=== PATIENT | female | born 1975 | race Caucasian/White ===

== ENCOUNTER → 2016-10-31 08:13 | Outpatient (CLI) | payer OTHER | END | disposition home or self-care (01) | LOC: D.RAD 08:13 | DX: R12 Heartburn (principal) ==

== ENCOUNTER 2016-12-06 06:56 | Day surgery (SDC) | payer OTHER ==
[2016-12-06] MEDS ORDERED: NEXIUM20 MG PO (07:59)
[2016-12-06] MEDS ORDERED: MULTIPLE VITAMI1 TA1 PO (08:00)
[2016-12-06] MEDS ORDERED: ZANTAC150 MG PO (08:00)
[2016-12-06 08:13] VITALS: BMI 28.2
[2016-12-06 08:19] LABS: HEMATOCRIT 38.1 % (36.0-48.0); HEMOGLOBIN 13.2 g/dL (12-16); MCH 30.8 pg (26.0-34.0); MCHC 34.6 g/dL (31.0-37.0); MEAN PLATELET VOLUME 11.9 fL (7.4-10.4); RBC 4.28 10x6/uL (4.00-5.40); RDW 12.3 % (11.5-14.5); WBC 5.3 10x3/uL (4.8-10.8)
[2016-12-06 08:41] LABS: HCG URINE NEGATIVE (NEGATIVE)
--- NOTE | 2016-12-06 09:39 | NUR ---
DILATED EOPHAGUS TO 60.
--- NOTE | 2016-12-06 10:07 | NUR ---
1000- PT BACK TO ROOM LL POSITION. OPENS EYES TO VERBAL STIMULATION AND ANSWERS QUESTIONS APPROPRIATELY. FULL LIQUIDS OFFERED. 1005- REPOSITIONED FOR COMFORT. VSS. WILL MONITOR.
--- NOTE | 2016-12-06 10:24 | NUR ---
PT TOLERATED FULL LIQUIDS. VSS. PT TO READY FOR HOME SHORTLY, CALLING FOR RIDE. WILL CONTINUE TO MONITOR.
--- NOTE | 2016-12-06 10:38 | NUR ---
1 MONTH FOLLOW UP APPT TO BE SCHEDULED BY OFFICE. ORDER FAXED, CONFIRMATION SHEET WITH ORDER.
--- NOTE | 2016-12-06 11:00 | NUR ---
1050- DR. SPANN AT BEDSIDE FOR PROCEDURAL FINDINGS. 1100- DISCHARGE INSTRUCTIONS COMPLETED. PAPERWORK SIGNED. PT VERBALIZED UNDERSTANDING.
--- NOTE | 2016-12-06 11:20 | NUR ---
PT DISCHARGED VIA WHEELCHAIR WITH FATHER.
--- NOTE | 2016-12-08 10:45 | OP ---
PATIENT NAME: YULIYA BOOTH MEDICAL RECORD: [id number] :79 LOCATION:[facility] ADMISSION DATE: SURGEON: ERIK SPANN MD DATE OF OPERATION: 12/06/2016 PROCEDURE: EGD with biopsy and esophageal balloon dilatation. REFERRING PHYSICIAN: Dr. Elvia Bernal [place], [place]. INDICATIONS: Ms. Booth is a delightful 41-year-old woman with a history of achalasia and GE reflux disease. She had a laparoscopic Coy fundoplication, Heller myotomy with Dr. Ma in 2007. She has had recurrent heartburn for several years, has been taking ranitidine 150 mg twice a day and Nexium [id number] twice a day for at least the past 5 years with minimal relief. She had an upper GI series with [facility] 10/31/2016 with finding showing postsurgical changes of the esophagus, trabeculated/reticulated appearance of the distal esophagus at the GE junction, retained contrast material within the esophagus. She presents for outpatient EGD. PREMEDICATIONS: Total IV anesthesia (propofol 300 mg). INSTRUMENT: Olympus video gastroscope and an esophageal balloon dilator 54-60French. PROCEDURE AND FINDINGS: After receiving informed consent, Ms. Booth's posterior pharynx was anesthetized with Cetacaine spray. She was placed in left lateral decubitus position, sedated as per anesthesia. After achieving adequate level of sedation, gastroscope was introduced per orally and advanced to the duodenum without difficulty. The esophagus was somewhat patulous and there was some modest clear fluid in the esophagus. The gastroscope passed easily through the GE junction. There were a few polyps in the fundus of the stomach measuring 0.3 cm in size and were biopsied. There was minimal erythema in the antrum and antral biopsies were obtained to rule out Helicobacter pylori. On retroflexion, no lesions were seen in the cardia. Pylorus was patent and competent. Duodenal mucosa was without erythema or ulcers, appeared normal through the third portion. Biopsies were taken from the second portion of duodenum to rule out celiac disease. The gastroscope was then withdrawn. Then, an esophageal balloon dilator was introduced through the gastroscope and the balloon was positioned midway across the GE junction, insufflated to a 60-Samoan size, held in place on the appropriate PSI for 60 seconds and then deflated. The balloon was then withdrawn and then biopsies were taken from the distal third of the esophagus and from the middle third of the esophagus. Gastroscope was withdrawn. Ms. Booth tolerated the procedure well. No immediate complications. ASSESSMENT: 1. Patulous esophagus (history of achalasia). 2. Retained fluid in the esophagus likely secondary to her achalasia, but the GE junction was dilated to possibly help with esophageal emptying. 3. Mild gastritis. 4. Small gastric polyps. 5. Symptoms of GE reflux disease. RECOMMENDATIONS: 1. Continue Nexium [id number] b.i.d. OPERATIVE REPORT [id number] YULIYA BOOTH 2. Continue ranitidine 150 mg twice a day. 3. Trial of Reglan 5 mg t.i.d. TRANSINT:[id number] Voice Confirmation ID: [id number] DOCUMENT ID: [id number] ERIK SPANN MD at 1045 CC: ELVIA BERNAL MD [id number] DICTATION DATE: 12/06/16957 [employer] KILN SUPERVISOR: 12/06/16 1200 [facility] 12/06/16 [facility] [address] [place] [address]
== END 2016-12-06 11:20 | disposition home or self-care (01) ==
LOC: D.OPS 06:56
PROVIDERS: Internal Medicine Gastroenterology
DX: K21.9 Gastro-esophageal reflux disease without esophagitis (principal); K31.7 Polyp of stomach and duodenum; K29.70 Gastritis, unspecified, without bleeding; Z01.812 Encounter for preprocedural laboratory examination

== ENCOUNTER 2018-06-23 07:21 | Day surgery (SDC) | payer OTHER ==
[~2018-06-23] VITALS: Ht 170.2 cm; Wt 90.9 kg
[~2018-06-23 07:21] MED LIST: MULTIPLE VITAMI1 TA1 PO; NEXIUM20 MG PO; ZANTAC150 MG PO
[2018-06-23] MEDS ORDERED: REGLAN5 MG PO (08:08)
[2018-06-23] MEDS ORDERED: PROTONIX20 MG PO (08:09)
[2018-06-23 08:11] VITALS: BP 144/94; Ht 170.2 cm; Wt 90.9 kg
[2018-06-23 08:14] LABS: HCG URINE NEGATIVE (NEGATIVE)
[2018-06-23 08:17] LABS: HEMATOCRIT 39.8 % (36.0-48.0); HEMOGLOBIN 13.9 g/dL (12-16); MCH 30.5 pg (26.0-34.0); MCHC 34.9 g/dL (31.0-37.0); MCV 87.3 fL (80.0-100.0); MEAN PLATELET VOLUME 12.5 fL (7.4-10.4); RBC 4.56 10x6/uL (4.00-5.40); RDW 12.5 % (11.5-14.5); WBC 6.8 10x3/uL (4.8-10.8)
--- NOTE | 2018-06-24 17:14 | OP ---
PATIENT NAME: YULIYA BOOTH MEDICAL RECORD: [id number] :79 LOCATION:[facility] ADMISSION DATE: SURGEON: MILAD PALMER DO DATE OF OPERATION: 06/23/2018 PROCEDURE: EGD with biopsies. INDICATIONS FOR PROCEDURE: History of achalasia status post Coy and Heller myotomy in 2008 as well as heartburn. SCOPE: Olympus video gastroscope. MEDICATIONS: Propofol 300 mg IV. ANESTHESIA: The patient was placed under general anesthesia to protect her airway during this procedure. ESTIMATED BLOOD LOSS: Minimal. COMPLICATIONS: None. FINDINGS: The patient was sedated, intubated and placed in a semi left lateral position. The endoscope was advanced under direct visualization through the mouth to the second portion of the duodenum with ease. Throughout the entire esophagus, there was evidence of moderate candidal esophagitis. There was also a moderate amount of fluid within the esophagus itself, which was suctioned through the endoscope. At the GE junction, there was evidence of reflux esophagitis. Severity was mild. The endoscope was advanced beyond the GE junction into the stomach and retroflexed to view the cardia, where a prior fundoplication was visualized. It appeared to be intact. The fundus, body, antrum, and prepyloric regions of the stomach appeared normal. Random cold forceps biopsies were taken to submit for histopathology and to rule out the presence of H. pylori. There were a few benign-appearing fundic gland polyps present in the fundus and body of the stomach. The polyp was biopsied to confirm its benign nature. The endoscope was advanced beyond the pylorus into the duodenum, which appeared normal down to the second portion. The endoscope was then withdrawn from the patient. The patient tolerated the procedure well and there were no complications. IMPRESSION: 1. Candidal esophagitis. 2. Fluid within the esophagus. 3. Reflux esophagitis and mild severity. 4. Benign appearing fundic gland gastric polyps. PLAN AND RECOMMENDATIONS: 1. Discharge home when recovery parameters are met. 2. Follow up biopsy specimen results. 3. GERD diet and reflux precautions. 4. We will treat candidal esophagitis with fluconazole 100 mg times 10 days, taking 2 the first day. 5. Discontinue Reglan. 6. Follow up in GI clinic in 2-3 weeks to discuss symptoms. If symptoms persist after the candidal esophagitis is treated, consider manometry study and revisiting with surgeon regarding the fundoplication. OPERATIVE REPORT [id number] LEOBARDOYULIYAMICHELLE LERMAELLE TRANSINT:[id number] Voice Confirmation ID: [id number] DOCUMENT ID: [id number] MILAD PALMER DO at 1714 CC: [id number] DICTATION DATE: 06/23/18 0902 [employer]ES REPRESENTATIVE G[employer] SERVICE: 06/23/18 1505 [facility] 06/23/18 [facility] [address] [place] [id number]
== END 2018-06-23 10:30 | disposition home or self-care (01) ==
LOC: D.OPS 07:21
PROVIDERS: Anesthesiology; ATTEND Internal Medicine Gastroenterology
DX: B37.81 Candidal esophagitis (principal); K29.50 Unspecified chronic gastritis without bleeding; K31.7 Polyp of stomach and duodenum; Z01.812 Encounter for preprocedural laboratory examination